=== PATIENT | male | born 1970 | race Two or more races ===

== ENCOUNTER 2019-06-05 10:54 | Emergency (ER) | payer OTHER ==
[~2019-06-05] VITALS: Ht 170.2 cm; Wt 66.5 kg
[2019-06-05 12:32] LABS: BASOPHILS # (AUTO) 0.03 x10^3/uL (0-0.1); BASOPHILS % (AUTO) 0 % (0-1); EOSINOPHILS # (AUTO) 0.35 x10^3/uL (0-0.4); EOSINOPHILS % (AUTO) 3 % (1-7); LYMPHOCYTES # (AUTO) 1.13 x10^3/uL (1-3.4); LYMPHOCYTES % (AUTO) 8 % (22-44); MD NO; MEAN CORPUSCULAR HGB CONC 33.3 g/dL (33.2-36.2); MEAN PLATELET VOLUME 9.9 fL (7.4-10.4); MONOCYTES # (AUTO) 1.06 x10^3/uL (0.2-0.8); MONOCYTES % (AUTO) 8 % (2-9); NEUTROPHILS % (AUTO) 81 % (42-75); PLATELET COUNT 239 x10^3/uL (130-400); RED BLOOD COUNT 5.28 x10^6/uL (4.38-5.82); RED CELL DISTRIBUTION WIDTH 13.1 % (9.4-14.8)
[2019-06-05 12:44] LABS: ALBUMIN 4.1 g/dL (3.4-5.0); ANION GAP 7 mmol/L (5-15); CALCIUM 9.6 mg/dL (8.5-10.1); CHLORIDE 105 mmol/L (98-107)
[2019-06-05 12:47] LABS: ALANINE AMINOTRANSFERASE 182 U/L (12-78); ALKALINE PHOSPHATASE 208 U/L (45-117); BILIRUBIN,TOTAL 0.9 mg/dL (0.2-1.0); CREATININE 0.97 mg/dL (0.7-1.3); TOTAL PROTEIN 8.3 g/dL (6.4-8.2)
--- NOTE | 2019-06-05 13:35 | NUR ---
TISSUE TECHNICIAN: PT TO ROOM FROM [facility]
[2019-06-05] MEDS ORDERED: TAMS-11 PO (13:45)
--- NOTE | 2019-06-05 13:50 | NUR ---
PT TO ED FOR SWELLING FROM SCROTUM TO ANUS X1 WEEK. PT STATES WAS RECENTLY DIAGNOSED WTIH AN ENLARGED PROSTATE AND HAS BEEN TAKING TAMSULOSIN X AT LEAST ONE MONTH, "BUT IT'S NOT WORKING." PT REPORTS PAIN WHILE MOVING AND WALKING AND HAS TROUBLE URINATING. PT CONNECTED TO MONITORS. VSS. DR. LOUIE TO BS FOR ASSESSMENT. AWAITING FURTHER ORDERS. UA CUP PROVIDED AND PT AWARE OF NEED FOR UA SAMPLE. PER PT, "IT TAKES ME A LONG TIME TO GO. I'LL TRY."
[2019-06-05] MEDS ORDERED: ONDANSETRON 2MG/ML, 2ML IVPush ONE (14:00)
[2019-06-05] MEDS ORDERED: MORPHINE SULFATE 4 MG/ML, 1ML ONE ×2 (14:06→15:13)
[2019-06-05] MEDS ORDERED: ONDANSETRON 2MG/ML, 2ML ONE (14:06)
[2019-06-05] MEDS: MORPHINE SULFATE 4 MG/ML, 1ML IVPush PRN ×2 (14:08→15:17)
[2019-06-05 14:39] LABS: MICROSCOPIC NOT IND
[2019-06-05 14:48] LABS: CULTURE INDICATED? NO
--- NOTE | 2019-06-05 15:05 | NUR ---
TASK RN: TO CT SCAN AT 1500
[2019-06-05] MEDS ORDERED: OMNIPAQUE 350 MG/ML, 100ML BOTTLE ONE (15:10)
--- NOTE | 2019-06-05 15:17 | NUR ---
Task RN: Back from ct. medicated per emar for continued scrotal pain at 02/01
[2019-06-05 16:09] VITALS: BP 128/75
--- NOTE | 2019-06-05 16:09 | NUR ---
TASK RN: PT RESTING IN [facility], NO NEEDS AT THIS TIME. CALL LIGHT WITHIN REACH. PT ON MONITOR.
[2019-06-05] MEDS ORDERED: LIDOCAINE-MPF 1%, 5ML ONE (16:41)
[2019-06-05] MEDS ORDERED: LIDOCAINE 1%-EPI 1:100K, 30ML INFIL ONE (17:00)
== END 2019-06-05 17:59 | disposition home or self-care (01) ==
LOC: ED 15:40
DX: L02.215 Cutaneous abscess of perineum (principal)
CPT/HCPCS: 36415; 46050; 72193; 80053; 81003; 83690; 85025; 96374; 96375; 96376; 99284; J2270; J2405; J3490; Q9967

== ENCOUNTER 2019-06-07 11:08 | Emergency (ER) | payer SELFPAY ==
[~2019-06-07] VITALS: Ht 170.2 cm; Wt 142.2 kg
[~2019-06-07 11:08] MED LIST: TAMS-11 PO
[2019-06-07 11:17] VITALS: BP 110/72
== END 2019-06-07 13:14 | disposition home or self-care (01) ==
LOC: ED 11:40
DX: K61.1 Rectal abscess (principal)
CPT/HCPCS: 99283